=== PATIENT | female | born 1945 | race Caucasian/White ===

== ENCOUNTER 2025-05-28 17:06 | Emergency (ER) | payer BC, MEDICARE ==
[2025-05-28] MEDS: Sodium Chloride 0.9% 10 ML Syringe FLUSH PRN (19:32)
[2025-05-28] MEDS: Nitroglycerin 0.4 MG Tab.SL SL PRN (19:32)
[2025-05-28 19:40] LABS: BASOPHILS ABSOLUTE AUTO 0.04 K/uL (0.00-0.10); BASOPHILS PERCENT AUTO 0.8 % (0.1-1.3); EOSINOPHILS ABSOLUTE AUTO 0.10 K/uL (0.00-0.40); EOSINOPHILS PERCENT AUTO 2.1 % (0.0-5.4); IMMATURE GRAN PERCENT AUTO 0.2 % (0.0-0.7); LYMPHOCYTES ABSOLUTE AUTO 1.46 K/uL (0.8-3.3); LYMPHOCYTES PERCENT AUTO 30.9 % (11.4-47.7); MONOCYTES ABSOLUTE AUTO 0.38 K/uL (0.20-0.90); MONOCYTES PERCENT AUTO 8.0 % (3.3-12.6); NEUTROPHILS ABSOLUTE AUTO 2.74 K/uL (1.0-7.6); NEUTROPHILS PERCENT AUTO 58.0 % (40.0-78.1); PLATELET COUNT,PLT 296 K/uL (130-375); RED BLOOD CELL COUNT 4.66 M/uL (3.77-5.24); WHITE BLOOD CELL COUNT,WBC 4.7 K/uL (3.2-11.0)
[2025-05-28 19:41] LABS: IMMATURE GRAN ABSOLUTE AUTO 0.01 K/uL (0.00-0.23)
[2025-05-28 20:52] LABS: CREATININE 0.8 mg/dL (0.5-1.0); EST CRCL DRUG DOSING (CG) 48.72 mL/min; ESTIMATED GFR 76.0 mL/min (>60)
[2025-05-28 21:18] LABS: BLOOD UREA NITROGEN,BUN 9.0 mg/dL (7-18); CARBON DIOXIDE,CO2 31.0 mmol/L (21-32); CHLORIDE,CL 100.0 mmol/L (100-108); GLUCOSE RANDOM 98.0 mg/dL (74-106); POTASSIUM,K 3.9 mmol/L (3.6-5.2); SODIUM,NA 138.0 mmol/L (140-148); TROPONIN I HIGH SENSITIVITY 5.7 pg/mL (<=60.3)
== END 2025-05-28 22:58 | disposition home or self-care (01) ==
LOC: JP.ED 17:06
DX: I16.0 Hypertensive urgency (principal); I10 Essential (primary) hypertension; K21.9 Gastro-esophageal reflux disease without esophagitis; Z79.899 Other long term (current) drug therapy; Z90.49 Acquired absence of other specified parts of digestive tract
CPT/HCPCS: 36415; 80048; 84484; 85025; 99284; A9270